=== PATIENT | male | born 1985 | race Caucasian/White ===

== ENCOUNTER 2017-10-28 13:46 | Emergency (ER) | payer OTHER ==
[2017-10-28 14:06] VITALS: BP 152/90; PULSE 79; RESP 16; TEMP 97.8; O2SAT 98
== END 2017-10-28 14:46 | disposition left against medical advice (07) | DRG 125 ==
LOC: ED 13:46
DX: S05.91XA Unspecified injury of right eye and orbit, initial encounter (principal); X58.XXXA Exposure to other specified factors, initial encounter; Z53.21 Procedure and treatment not carried out due to patient leaving prior to being seen by health care provider
CPT/HCPCS: 99282